=== PATIENT | female | born 1935 | race Caucasian/White ===

== ENCOUNTER 2018-07-22 19:40 | Emergency (ER) | payer OTHER ==
[~2018-07-22] VITALS: Ht 149.9 cm; Wt 63.5 kg
--- NOTE | ~2018-07-22 | EKG ---
[place] [address] [facility] [place] [address] ELECTROCARDIOGRAM REPORT Name: AMADA FRANCOISOLINDA Jacobo [facility]: [facility] [id number] Admission: 07/22/18 Attend Phys: Discharge: Date of : 37 Report #: [id number] THIS REPORT FOR: //name// [facility] ED Test Date: 2018-07-22 Test Time: 20:56:29 Pat Name: HAKEEM FRANCOIS Department: Room: Gender: F Range Aide: westleyjohana : 1935 Requested By: Celestine Hdz Order Number: [id number] MD: Santi Kendall Measurements Intervals [place] Rate: 67 P: 40 SC: 179 QRS: -6 QRSD: 94 T: 52 QT: 441 QTc: 466 Interpretive Statements Sinus rhythm Normal tracing Baseline wander in lead(s) V3 Compared to ECG 06/26/2015 11:28:28 No significant change was found Electronically Signed On 07-23-2018 8:54:10 NO EXPERIENCE by Santi Kendall [email or web address] <ELECTRONICALLY SIGNED> By: Santi Kendall MD, [facility] 07/23/18 0854 D: 11/2055 55 Santi Kendall MD, FACC /EPI
[~2018-07-22 19:40] MED LIST: ALBUTEROL2.5 MG/31 INH; ASPIR 8181 MG PO; AVAPRO300 MG PO; BENADRYL25 MG PO; BIOTIN PO; BIOTIN5 M1 PO; CEPACOL SORE T1 EAC7 PO; COREG3.125 MG PO; CRESTOR10 MG PO; CRESTOR20 MG PO; DONEPEZIL HCL 55 M1 PO; ENOXAPARIN30 MG/0.1 SUBQ; EVISTA PO; FISH OIL 1,001000 M2 PO; HARD NAILS2500 MCG; HUMALOG100 UNIT/1 SUBQ; HYDROCHLOROTHIA25 M2 PO; L-LYSINE500 M1 PO; LANTUS100 UNIT/M SUBQ; MAGNESIUM250 M1 PO; MEDROLDOSEPACK PO; MOM; MULTIVITAMINS1 EAC1 PO; MULTIVITAMINS1 EAC7 PO; PREVACID30 MG PO; PROAIR HFA8.5 GM INH; TESSALON PERLE100 MG PO; TRAMADOL 50 MG50 MG PO; TYLENOL325 MG PO; VENTOLIN HFA 1818 GM INH; VFEND 200 MG T200 M1 PO; VITAMIN D1000 UNI1; VITAMIN D1000 UNI1 PO; VITAMIN E400 UNI3; VITAMIN E400 UNIT PO; XANAX 0.25 MG0.25 MG PO; ZPAK PO
[2018-07-22 21:42] LABS: URINE BILIRUBIN NEGATIVE (Negative); URINE BLOOD TRACE (Negative); URINE CLARITY CLEAR; URINE COLOR YELLOW; URINE GLUCOSE-RANDOM* NEGATIVE (Negative); URINE KETONES NEGATIVE (Negative); URINE NITRITE-REFLEX NEGATIVE (Negative); URINE PROTEIN (DIPSTICK) NEGATIVE (Negative); URINE UROBILINOGEN 0.2 E.U./dl (0.2-1.0)
[2018-07-22 21:43] LABS: URINE LEUKOCYTES-REFLEX 2+ (Negative)
[2018-07-22 21:49] LABS: AMORPHOUS URATES Few /LPF (None Seen); BACTERIA-REFLEX 1-9 Few /HPF (None Seen); CASTS None Seen /LPF (None Seen); CRYSTALS None Seen /LPF (None Seen); SQUAMOUS 0-3 Few /LPF (0-3); URINE RBC 3-10 Few /HPF (0-2); URINE WBC-REFLEX 6-15 Few /HPF (0-5); WBC CLUMPS Rare (None Seen)
[2018-07-22 21:56] VITALS: BP 198/98
[2018-07-22 21:59] LABS: ABSOLUTE NEUTROPHILS 4.5 thou/uL (1.4-8.2); BASOPHILS 0.8 % (0.0-2.0); HEMATOCRIT 35.6 % (37.0-47.0); HEMOGLOBIN 12.2 gm/dL (12.0-15.0); LYMPHOCYTES 23.5 % (24.0-44.0); MCH 32.5 pg (26.0-34.0); MCHC 34.3 g/dL (28.0-37.0); MCV 94.8 fL (80.0-100.0); MONOCYTES 8.7 % (1.0-8.0); PLATELET COUNT 134 thou/uL (150-400); RBC 3.76 mil/uL (4.20-5.00); WBC 6.9 thou/uL (4.0-11.0)
[2018-07-22 22:07] LABS: ANION GAP 9 mmol/L (7-16); BUN 20 mg/dL (7-18); CALCIUM 10.1 mg/dL (8.5-10.1); CHLORIDE 103 mmol/L (98-107); CO2 26 mmol/L (21-32); CREATININE 1.5 mg/dL (0.6-1.0); GLUCOSE 170 mg/dL (74-106); POTASSIUM 4.6 mmol/L (3.5-5.1); SODIUM 138 mmol/L (136-145)
[2018-07-22 22:15] LABS: ALBUMIN 3.6 g/dL (3.4-5.0); MAGNESIUM 1.4 mg/dL (1.8-2.4); SGOT 39 U/L (15-37); SGPT 29 U/L (30-65); TOTAL BILIRUBIN 0.6 mg/dL (<0.1-1.0); TOTAL PROTEIN 8.4 g/dL (6.4-8.2); TROPONIN-I <0.06 ng/mL (<0.06)
[2018-07-22] MEDS ORDERED: KEFLEX500 M1 PO (22:19)
[2018-07-22] MEDS ORDERED: LISINOPRIL10 MG PO (22:19)
== END 2018-07-22 22:45 | disposition home or self-care (01) ==
LOC: ER 19:40
PROVIDERS: Emergency Medicine
DX: E11.649 Type 2 diabetes mellitus with hypoglycemia without coma (principal); Z79.4 Long term (current) use of insulin; R91.8 Other nonspecific abnormal finding of lung field; N39.0 Urinary tract infection, site not specified; I12.9 Hypertensive chronic kidney disease with stage 1 through stage 4 chronic kidney disease, or unspecified chronic kidney disease; E11.22 Type 2 diabetes mellitus with diabetic chronic kidney disease; N18.9 Chronic kidney disease, unspecified

== ENCOUNTER → 2019-04-08 | Outpatient (CLI) | payer OTHER ==
[~2019-04-08] MED LIST changes: +KEFLEX500 M1 PO; +LISINOPRIL10 MG PO
== END ==
LOC: MRI 04-01 15:39
DX: R90.82 White matter disease, unspecified (principal)

== ENCOUNTER → 2019-09-30 | Outpatient (CLI) | payer OTHER ==
[~2019-09-30] MED LIST changes: +CEFUROXIME250 MG PO; +LANTUS SUBQ
== END ==
LOC: SJCVC 10:33
DX: I25.10 Atherosclerotic heart disease of native coronary artery without angina pectoris (principal); E11.319 Type 2 diabetes mellitus with unspecified diabetic retinopathy without macular edema; E11.65 Type 2 diabetes mellitus with hyperglycemia; E78.00 Pure hypercholesterolemia, unspecified; F03.90 Unspecified dementia, unspecified severity, without behavioral disturbance, psychotic disturbance, mood disturbance, and anxiety; E11.22 Type 2 diabetes mellitus with diabetic chronic kidney disease; I12.9 Hypertensive chronic kidney disease with stage 1 through stage 4 chronic kidney disease, or unspecified chronic kidney disease; N18.9 Chronic kidney disease, unspecified; M81.0 Age-related osteoporosis without current pathological fracture; Z90.710 Acquired absence of both cervix and uterus; Z90.49 Acquired absence of other specified parts of digestive tract; Z90.12 Acquired absence of left breast and nipple; Z79.899 Other long term (current) drug therapy

== ENCOUNTER 2019-12-01 19:26 | Inpatient (IN) | payer OTHER ==
[~2019-12-01] VITALS: Ht 149.9 cm; Wt 58.5 kg
--- NOTE | ~2019-12-01 | EMS ---
[facility] [address] [place] [address] EMS Patient Care Report Name: HAKEEM FRANCOIS Room #: 437-P ADM IN M.R.#: [id number] Admission: 12/02/19 Attend Phys: Tesfaye Vazquez Discharge: Date of : 36 Report #: [id number] THIS REPORT FOR: //name// Report Transmitted: 12/03/2019 06:36 EMS Care Summary [place], [place]/[facility] Incident [id number] @ 12/01/2019 18:29 Incident Location [id number] [place] [address] [address] Patient HAKEEM FRANCOIS Female, 84 Years 1935 Patient Address [id number] [place] [address] [address] [place] [address] Patient History Diabetes, Patient Allergies No known allergies, Patient Medications Carvedilol, Lantus, Rosuvastatin, Levothyroxine, Humalog, None Reported, Hydrochlorothiazide (Hctz), Pantoprazole, Memantine, Irbesartan, Chief Complaint HYPERGLYCEMIA Disposition Transported No Lights/[place] Dispatch Reason Diabetic Problem Transported To [facility] Narrative PT STATES THAT PT HAS HAD A HIGH BLOOD SUGAR SINCE THIS MOURNING AND THAT SHE DOESN'T KNOW WHAT HER SUGAR READINGS WERE FOR THE WEEK BECAUSE SHE FORGETS TO [facility] [address] [place] [address] EMS Patient Care Report Name: HAKEEM FRANCOIS Room #: 437-P [facility] IN M.R.#: [id number] Admission: 12/02/19 Attend Phys: Tesfaye Vazquez Discharge: Date of : 36 Report #: [id number] WRITE THEM DOWN. PT STATES THAT PT HAS BEEN TO WEAK TO GET UP AND EAT. PT DENIES BEING ABLE TO TAKE HER INSULIN. PT HAS NO OTHER COMPLAINTS. PT WAS FOUND SITTING IN PT'S CHAIR IN PT'S HOME. PT SPOKE IN FULL AND COMPLETE SENTENCES. PT IS ABLE TO STAND AND PIVOT TO GET ONTO EMS COT WITH ASSISTANCE. PT FAMILY WAS WITH PT AND CONCERNED ABOUT PT. PT HAS NO OTHER OBVIOUS ABNORMALITIES. EMS USED A KN95 MASK ON PT CALL AND INSIDE PT'S HOME EMERGENCY SERVICES PROFESSIONAL WAS NOTIFIED BY EMT THAT THE MEDICS MASK HAD SPLIT DOWN THE FRONT. Initial Vitals @19:08P: 96,SpO2: 66, @19:13P: 91,CO: 2,SpO2: 95, @18:59P: 97,R: 18,BP: 152/80,Pain: 0/10,GCS: 15,Temp: 98.6F,Glucose: -2,CO: 0,SpO2: 96,Revised Trauma: 12, @19:09P: 95,R: 18,BP: 118/70,Pain: 0/10,GCS: 15,Glucose: -2,SpO2: 95,Revised Trauma: 12, Assessments @18:40MENTAL:Person Oriented,Time Oriented,Event Oriented,Place Oriented,SKIN:HEENT:Eyes: Left Pupil: 3-mm,Eyes: Right Pupil: 3-mm,Head/Face: No Abnormalities,Neck/Airway: No Abnormalities,LUNG SOUNDS:General: No Abnormalities,ABDOMEN:General: No Abnormalities,PELVIS//GI:EXTREMITIES:Capillary Refill: Right Upper: < 2 Sec,Left Arm: No Abnormalities,Right Arm: No Abnormalities,Left Leg: No Abnormalities,Right Leg: No Abnormalities,PULSE:Radial: 2+ Normal,NEURO:No Abnormalities, Impression Diabetic Hyperglycemia Procedures @19:1312-Lead ECGResponse: UnchangedSucceeded@19:10ALS AssessmentResponse: UnchangedSucceeded@19:123-Lead ECGResponse: UnchangedSucceeded Timeline 18:26,Call Received 18:26,Dispatch Notified 18:29,Dispatched 18:29,En Route 18:33,On Scene 18:34,At Patient 18:59,BP: 152/80 M,PULSE: 97,RR: 18 R,SPO2: 96 Ox,ETCO2: ,BG: -2,PAIN: 0,GCS: 15, 19:08,[place] [address] EMS Patient Care Report Name: HAKEEM FRANCOIS Odalis Room #: 437-P [facility] IN [facility].#: [id number] Admission: 12/02/19 Attend Phys: Tesfaye Vazquez Discharge: Date of : 36 Report #: [id number] 19:08,BP: / M,PULSE: 96,RR: R,SPO2: 66 Ox,ETCO2: ,BG: ,PAIN: ,GCS: , 19:09,BP: 118/70 M,PULSE: 95,RR: 18 R,SPO2: 95 Ox,ETCO2: ,BG: -2,PAIN: 0,GCS: 15, 19:10,ALS Assessment,Response: UnchangedSucceeded, 19:12,3-Lead ECG,Response: UnchangedSucceeded, 19:13,12-Lead ECG,Response: UnchangedSucceeded, 19:13,BP: / M,PULSE: 91,RR: R,SPO2: 95 Ox,ETCO2: ,BG: ,PAIN: ,GCS: , 19:21,At Destination 19:43,Call Closed Disclaimer v1.1 Copyright 2020 [employer] This EMS Care Summary contains data elements from the applicable legal record (which may be displayed differently). It is designed to provide pertinent information for the following purposes: continuity of care, clinical quality, and state data reporting. The complete legal record is available to ED staff and administrators of the receiving hospital in ES's Patient Tracker. All data is provided "as is."
[~2019-12-01 19:26] MED LIST changes: -CEFUROXIME250 MG PO; -LANTUS SUBQ
[2019-12-01 19:40] VITALS: BP 160/67
[2019-12-01 20:27] LABS: ABSOLUTE NEUTROPHILS 11.1 thou/uL (1.4-8.2); BASOPHILS 0.2 % (0.0-2.0); HEMATOCRIT 34.2 % (37.0-47.0); HEMOGLOBIN 11.5 gm/dL (12.0-15.0); LYMPHOCYTES 10.2 % (24.0-44.0); MCH 31.2 pg (26.0-34.0); MCHC 33.6 g/dL (28.0-37.0); MCV 92.9 fL (80.0-100.0); MONOCYTES 11.2 % (1.0-8.0); PLATELET COUNT 133 thou/uL (150-400); POLYS 78.4 % (36.0-66.0); RBC 3.68 mil/uL (4.20-5.00); RDW 13.6 % (10.5-14.5); URINE BILIRUBIN NEGATIVE (Negative); URINE BLOOD 1+ (Negative); URINE CLARITY CLEAR; URINE COLOR YELLOW; URINE GLUCOSE-RANDOM* 3+ (Negative); URINE KETONES NEGATIVE (Negative); URINE LEUKOCYTES-REFLEX NEGATIVE (Negative); URINE NITRITE-REFLEX NEGATIVE (Negative); URINE PROTEIN (DIPSTICK) TRACE (Negative); URINE SPECIFIC GRAVITY 1.015 (1.005-1.035); URINE UROBILINOGEN 0.2 E.U./dl (0.2-1.0); WBC 14.2 thou/uL (4.0-11.0)
[2019-12-01 20:31] LABS: BE(vivo) 0.1 mmol/L (-2 to +3); HCO3 23.9 mmol/L (22.0-26.0); PO2 VENOUS 47.7 mmHg (35.0-45.0)
[2019-12-01 20:35] LABS: CALCIUM 9.1 mg/dL (8.5-10.1); POTASSIUM 3.2 mmol/L (3.5-5.1); URINE WBC-REFLEX 6-15 Few /HPF (0-5)
[2019-12-01 20:36] LABS: CASTS None Seen /LPF (None Seen); CRYSTALS None Seen /LPF (None Seen); SQUAMOUS 0-3 Few /LPF (0-3); URINE RBC 0-2 Rare /HPF (0-2)
[2019-12-01 20:41] LABS: ALBUMIN 3.2 g/dL (3.4-5.0); TOTAL BILIRUBIN 1.6 mg/dL (<0.1-1.0); TOTAL PROTEIN 8.1 g/dL (6.4-8.2)
[2019-12-01 20:42] LABS: MAGNESIUM 0.8 mg/dL (1.8-2.4)
[2019-12-02] VITALS (8 sets, daily range): BP systolic 119–135; BP diastolic 49–67
--- NOTE | 2019-12-02 04:17 | NUR ---
ADMIT FROM ED. PT LIVES IN [place], [facility]. 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 PT STATED HER DAUGHTER AND SON THOUGHT SHE SHOULD GO TO THE HOSPITAL. EMS REPORTED HIGH FSBS. IN ED FSBS 460. UA OBTAINED, LABS NOT WITHIN NORMAL RANGE. PT REPORTED R KNEE PAIN FOR THE LAST TWO DAYS. LUNGS DIMINISHED. IV INTACT ANTIBIOTICS RUNNING. FEMALE EXT CATHETER IN PLACE. SCDS ON, PT REQESTED RLE SCD BE REMOVED. BED ALARM ON.
[2019-12-02 05:07] LABS: GLYCOHEMOGLOBIN (HGB A1C) 7.7 % (4.8-5.6)
--- NOTE | 2019-12-02 06:32 | NUR ---
LAB ATTEMPTED X 2, NOT SUCCESSFUL WILL HAVE NEXT MANNEQUIN MOLDER ATTEMPT.
[2019-12-02 09:31] LABS: CALCIUM 7.9 mg/dL (8.5-10.1); CREATININE 1.4 mg/dL (0.6-1.0); MAGNESIUM 1.7 mg/dL (1.8-2.4); POTASSIUM 3.3 mmol/L (3.5-5.1)
--- NOTE | 2019-12-02 13:03 | NUR ---
Received awake on bed. Due medications given as prescribed, able to swallow meds w/o difficulty. On room air. Maintained on isolation, special precautions observed. Vital signs stable. On heart monitoring- strips obtained and attached to chart, no complaints of chest pain, crushing sensation or heaviness noted. On carb controlled diet served on special precautions tray, with good appetite; no nausea, no vomiting or abdominal pain noted. Complained of pain on R knee- no PRN meds ordered, Dr Vazquez informed; medication given as precribed. A+Ox4. On blood sugar monitoring ACHS, taken and recorded, with sliding scale insulin given as prescribed. CBG of 447 pre-lunch, Dr Moore in pt's room and informed re: blood sugar- insulin ordered and given as prescribed. Falls bundle in place. With female external emerson in place- output measured and recorded accordingly; checked frequently and changed as needed. With SL at R hand. With NS at 125cc/hr, infusing well at R AC, one time dose only, shifted to SL upon completion. PO correction of K(3.3, 47) and Mg(1.7, 4/7) done and repeat labs ordered and to be taken at 4/7, 4pm. SCDs in place. To continue monitoring patient.
--- NOTE | 2019-12-02 14:54 | HC ---
[facility] [place] [address] [place] [address] CONSULTATION Name: HAKEEM FRANCOIS Odalis Room #: 353-P [facility] IN ..#: [id number] Admission: 12/02/19 Attend Phys: Tesfaye Vazquez Discharge: Date of : 36 Report #: [id number] THIS REPORT FOR: cc: Georgia Benson MD,Hayley Bojorquez MD, MD ~ CC: Tesfaye Benson DATE OF SERVICE: 12/02/2019 ENDOCRINE CONSULTATION NOTE CONSULTING PHYSICIAN: Dr. Larson. REASON FOR CONSULTATION: Uncontrolled type 2 diabetes mellitus. HISTORY OF PRESENT ILLNESS: This is an 84-year-old female patient whose medical background is significant for multiple medical issues including type 2 diabetes mellitus, hypertension, GERD, history of TIA, anemia, as well as breast cancer and throat cancer. The patient presented to the ER yesterday with complaints of hyperglycemia, generalized fatigue and weakness, body aches, right knee pain and inability to ambulate. She was admitted for further care and monitoring. When questioned about her type 2 diabetes mellitus, she noted that she has had it for several years and that she is maintained on a combination of Lantus insulin 35 units q.p.m. in addition to Humalog insulin that she adjusts according to a scale, but average is at about 8-12 units per meal 3 times a day. She notes that her blood glucose values have fluctuated somewhat lately and tended to be on the higher side, but with most being around 200 mg/dL and rarely above 300 mg/dL. She does not have frequent issues with hypoglycemia. The patient is not aware of difficulties pertaining to diabetic retinopathy, nephropathy or neuropathy. Also, the patient has hyperlipidemia and is maintained on rosuvastatin 20 mg daily. The patient is also known to have hypertension and is maintained on irbesartan 300 mg daily as well as carvedilol 3.125 mg p.o. b.i.d. REVIEW OF SYSTEMS: CONSTITUTIONAL: Fatigue, tiredness, weakness, but not fever or chills. PULMONARY: Shortness of breath, dyspnea on exertion, intermittent cough, but no hemoptysis. CARDIAC: Negative for chest pain, palpitations, syncope or presyncope. Noted for dyspnea on exertion. NEUROLOGY: Intermittent lightheadedness and dizziness, but not seizure activity or severe frequent headaches. No loss of consciousness. GASTROINTESTINAL: Negative for abdominal pain, nausea, vomiting or changes in [address] [address] CONSULTATION Name: HAKEEM FRANCOIS Odalis Room #: 353-P [facility] IN ..#: [id number] Admission: 12/02/19 Attend Phys: Tesfaye Vazquez Discharge: Date of : 36 Report #: [id number] bowel movement or frequency. DERMATOLOGY: Negative for skin rash or ulcerations. MUSCULOSKELETAL: Right knee pain and limited ambulation. PSYCHIATRIC: Negative for delusions, hallucinations. Otherwise, review of systems noncontributory other than those mentioned in HPI. PAST MEDICAL HISTORY: 1. Type 2 diabetes mellitus. 2. Hypertension. 3. Hyperlipidemia. 4. Osteoarthritis. 5. GERD. 6. Osteoporosis. 7. History of TIA. 8. Anemia. 9. History of breast cancer. 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 PAST SURGICAL HISTORY: Left mastectomy, hysterectomy and cholecystectomy. OUTPATIENT MEDICATIONS: Include lisinopril 10 mg daily, Prevacid 30 mg daily, donepezil 5 mg daily, aspirin 81 mg daily, Lantus 35 units q.p.m., Evista 60 mg daily, hydrochlorothiazide 12.5 mg daily, irbesartan 300 mg daily, carvedilol 3.125 mg p.o. b.i.d., Humalog insulin 8-12 units t.i.d. Crestor 20 mg at bedtime, multivitamin daily. REPORTED ALLERGIES: ACETAMINOPHEN, CIPROFLOXACIN, ____, SULFA, FENTANYL. FAMILY HISTORY: Noncontributory. SOCIAL HISTORY: The patient lives by herself. Denies use of alcohol, tobacco or illicit drugs. PHYSICAL EXAMINATION: GENERAL: Pleasant female patient who is not in apparent distress. VITAL SIGNS: Blood pressure is 133/55 mmHg, heart rate is 78 beats per minute, respirations 16 per minute, temperature 36.2 degrees. CONSTITUTIONAL: The patient is sitting upright in bed, appears relatively comfortable, not in apparent distress. HEENT: Anicteric sclerae. Intact extraocular motions. NECK: Supple, without JVD. No appreciable thyromegaly. CHEST: Noted for moderate air entry bilaterally with scattered rales. No wheezes. HEART: Regular rate and rhythm without murmurs or gallops. ABDOMEN: Soft, lax. No guarding. Active bowel sounds. EXTREMITIES: Lower extremity exam is noted for trace ankle edema bilaterally. [facility] [address] [place] [address] CONSULTATION Name: HAKEEM FRANCOIS Room #: 353-P ADM IN M.R.#: [id number] Admission: 12/02/19 Attend Phys: Tesfaye Vazquez Discharge: Date of : 36 Report #: [id number] No skin breaks or ulcerations. Pedal pulses are appreciated. NEUROLOGIC: Awake, alert and oriented to time, place and person. The patient had difficulties performing some thoughts and answers, however, she is not aphasic. Otherwise, exam is largely nonfocal. PSYCHIATRIC: Pleasant, interactive. Normal mood and affect. LABORATORY DATA: Blood glucose on arrival was 323, this morning it was 447 mg/dL. Otherwise, sodium 131, potassium 3.3, chloride 97, CO2 of 21, anion gap 13, BUN 27, creatinine 1.4. AST 16, amylase 50, lipase 284, calcium 7.9, phosphorus 2.0, magnesium 1.7, ALT 20, total protein 8.1, albumin 3.2. EGFR 36. COVID-19 screening is pending. INR 1.1. White blood count 14.2, hemoglobin 11.5, hematocrit 34.2, platelets 133. Hemoglobin A1c is 7.7%. ASSESSMENT AND PLAN: 1. Type 2 diabetes mellitus. As noted above, the patient has been maintained on a basal bolus insulin regimen. Her overall level of glycemic control is not ideal, but it was not far from goal with hemoglobin A1c of 7.7%. I will place the patient on a combination of Lantus insulin 30 units daily in addition to Humalog insulin 10 units t.i.d. a.c., as well as maintain Humalog supplemental scale coverage with moderate intensity with blood glucose monitoring a.c. and at bedtime. Further insulin regimen adjustments will be made according to the patient's needs. 2. Hypertension. The patient's level of blood pressure control is adequate. She is to continue with the same. 3. Hyperlipidemia. The patient is maintained on rosuvastatin with adequate control as per her report and good tolerability. She is to maintain the same. 4. Hypocalcemia. The patient is notably hypocalcemic, but is not symptomatic for this issue. I will verify this further with vitamin D and ionized calcium levels. I have reviewed the patient's clinical care notes, laboratory studies, radiology studies and other pertinent clinical information for over 35 minutes. I certainly appreciate this consultation by Dr. Larson. <ELECTRONICALLY SIGNED> By: Hayley Maradiaga MD 12/02/19 1454 1134 1200 Hayley Maradiaga MD /nt
--- NOTE | 2019-12-02 15:28 | NUR ---
INITIAL ASSESSMENT: Received consult. MARCIANO reviewed chart and spoke with nursing and attending physician. Pt was admitted from home due to hyperglycemia/pneumonia. Pt with hx of DM type 2, breast cancer, tracheal cancer. Pt is currently in Enhanced Isolation to r/o COVID-19. Pt had xray of her right knee earlier today. MARCIANO spoke with pt via phone. Introduced role of SW. Pt is alert/orientated. Pt states that she lives at home alone in an apt in a [facility] [address] complex ([facility]). Prior to admission, pt was independent with ADLs. Pt has elevator access. No stairs to navigate. No use of DME. No hx of HH services. Pt has been to [facility] in the past. Pt's PCP is Dr. Georgia Benson. MARCIANO spoke with pt's dtr, Liana, via phone to provide update. Pt's dtr lives in [place], [place] and her soon is in [place]. Both are supportive and involved in pt's care. Confirms plan is for pt to return to her apt when medically stable. Therapy evals to be ordered when COVID-19 results are available. MARCIANO is following to assist as needed with discharge plannign.
[2019-12-02 16:06] LABS: MAGNESIUM 1.6 mg/dL (1.8-2.4); POTASSIUM 3.7 mmol/L (3.5-5.1)
--- NOTE | 2019-12-02 19:17 | NUR ---
ASSUMED CARE OF PT AFTER REPORT FROM DAWN DOSHI, PT RESTING IN BED WITH NO APPARENT S/S OF DISTRESS NO COMPLAINTS OR QUESTIONS AT THIS TIME.
[2019-12-03 04:27] VITALS: BP 127/55
[2019-12-03 05:08] LABS: 25-HYDROXY TOTAL 36.3 ng/mL (30.0-100.0); CALCIUM IONIZED* 4.6 mg/dL (4.5-5.6)
[2019-12-03 06:04] LABS: HEMATOCRIT 29.1 % (37.0-47.0); HEMOGLOBIN 10.1 gm/dL (12.0-15.0); MCH 32.2 pg (26.0-34.0); MCHC 34.6 g/dL (28.0-37.0); MCV 93.2 fL (80.0-100.0); RBC 3.12 mil/uL (4.20-5.00); RDW 13.4 % (10.5-14.5); WBC 9.1 thou/uL (4.0-11.0)
[2019-12-03 06:28] LABS: CALCIUM 7.9 mg/dL (8.5-10.1); CREATININE 1.3 mg/dL (0.6-1.0); MAGNESIUM 1.5 mg/dL (1.8-2.4); POTASSIUM 3.6 mmol/L (3.5-5.1)
[2019-12-03 07:50] VITALS: BP 150/52
--- NOTE | 2019-12-03 14:27 | NUR ---
ORTHO CONSULTED THIS DAY THEY ARE PLANNING TO DO INJECTION IN PT'S KNEE. CM SPOKE WITH PT ABOUT PT AND OT SEEING HER AND POSSIBLE BEING ASSESSED FOR 5N. CM TO FOLLOW INDICATED WITH DC PLANNING NEEDS.
[2019-12-03 16:52] LABS: SOURCE SYNOVIAL; TOTAL VOLUME 25 mL
[2019-12-03 16:53] LABS: BF CRYSTALS No Crystals seen; CLARITY CLOUDY; COLOR YELLOW
[2019-12-03 17:16] VITALS: BP 138/60
[2019-12-03 18:23] LABS: BF NUCLEATED CELLS 24762; BF RBC 8352
[2019-12-03 18:26] LABS: BF MACROPHAGE 2; BF NEUTROPHILS 93
--- NOTE | 2019-12-03 20:11 | NUR ---
PATIENT CARE ASSUMED AT 0700. A&Ox4. PT UP IN THE RECLINER ALL DAY. L. SIDE FORBIDDEN. ACHS ON A MEDIUM SLIDDING SCALE WITH COVERAGE NEEDED. EXTERNAL MONAE IN PLACE. SCD'S IN PLACE. PT IS ON ELECTROLYTE PROTOCOL. PT NEEDED MAGNESIUM DUE TO HER RATE BEING 1.3 NEEDS TO BE REDRAWN AT 2114. POTASSIUM WAS LOW IN THE AM AND RECEIVED A ONE TIME DOSE AND WAS STABALIZED AT REDRAW. PT HAD FLUIDS DRAWN FROM HER R. KNEE BY DR. FRIEND THIS AM AND IS FEELING BETTER WITH NO PAIN MEDICATION NEEDED. FALL PROTOCOL IN PLACE. CALL LIGHT IN REACH. IV PATENT WITH NO REDNESS OR EDEMA. SALINE LOCKED.
[2019-12-03 21:31] VITALS: BP 134/64
--- NOTE | 2019-12-04 05:19 | NUR ---
RECIEVED CARE OF THIS PATIENT AT 1900. PATIENT ALERT AND ORIENTED X4 BUT IS FORGETFUL AND CONFUSED AT TIMES. UP TO BATHROOM WITH ASSIST. IV REPLACED AND PUT IN R WRIST BY THE THUMB. TOLERATED WELL. ACCUCHECK WAS 256, RECIEVED 12 UNITS LISPRO INSULIN. CAN BE IMPULSIVE. REFUSED SCD'S. DENIES PAIN. SLEPT MOST OF THE NIGHT.
[2019-12-04 07:20] VITALS: BP 136/65
[2019-12-04] MEDS ORDERED: LANTUS SUBQ (09:38)
[2019-12-04] MEDS ORDERED: TRAMADOL 50 MG50 MG PO (09:38)
[2019-12-04] MEDS ORDERED: HUMALOG100 UNIT/1 SUBQ (09:39)
[2019-12-04] MEDS ORDERED: CEFUROXIME250 MG PO (09:43)
--- NOTE | 2019-12-04 11:27 | HC ---
[facility] [place] [address] [place] [address] CONSULTATION Name: HAKEEM FRANCOIS Room #: 437-P [facility] IN .R.#: [id number] Admission: 12/02/19 Attend Phys: Tesfaye Vazquez Discharge: Date of : 36 Report #: [id number] THIS REPORT FOR: cc: Georgia Benson MD,Georgia Melendrez,Hansel Zamora MD ~ CC: Tesfaye Benson DATE OF SERVICE: 12/03/2019 CHIEF COMPLAINT: Right knee pain. HISTORY OF PRESENT ILLNESS: This frail, elderly 84-year-old female presents with hypoglycemia and possible sepsis with generalized fatigue and malaise. She also was noted to have some right knee discomfort where there appears to be a mild knee effusion. At the time of my evaluation, she is alert and oriented and sitting up, eating her lunch and states she feels well. She notes her right knee symptoms are uncomfortable and present difficulties with ambulation, although she notes she is now able to ambulate with a walker. She denies any other joint symptoms and denies significant previous joint irritability. OBJECTIVE: MUSCULOSKELETAL: On exam, the right knee is moderately puffy consistent with a knee effusion. There is no significant redness or warmth, but the knee has uncomfortable range of motion. Findings would be consistent with either a degenerative knee with reactive synovitis, but it is certainly difficult to rule out infection or gout as another possibility. I see no other joints, which seemed to be annoyed or inflamed. X-rays of the right knee reveal no fractures. There is evidence of a moderate knee effusion and some generalized degenerative arthritis. No other significant abnormalities are noted. IMPRESSION AND PLAN: I suspect this is a moderately arthritic knee with an acute reactive synovitis. Nevertheless, I think joint aspiration for culture and crystals along with injection with Depo-Medrol would be appropriate at this point. I can proceed with that whenever the materials are available. I would not suggest any other interventive treatment for the knee at this point. We will follow along pending her progress. <ELECTRONICALLY SIGNED> By: Hansel Melendrez MD 12/04/19 1127 1243 1258 Hansel Melendrez MD /nt
[2019-12-04 12:37] VITALS: BP 136/65
--- NOTE | 2019-12-04 12:39 | NUR ---
FAXED REFERRAL TO [facility] HH SPOKE WITH LILIBETH IN INTAKE SHE RECEIVED REFERRAL AND WILL BE ABLE TO ACCEPT.
[2019-12-04 13:29] VITALS: BP 136/65
--- NOTE | 2019-12-04 13:31 | NUR ---
CARE TEAM INDICATED THAT IS TOO HIGH LEVEL FOR 5N ACUTE INPATIENT REHAB AND THAT PT IS MEDICALLY STABLE AND SAFE TO RETURN HOME UPON DISCHARGE. CM SPOKE WITH PT AND SHE IS AGREEABLE. REFERRAL SENT TO [facility]. THEY CAN ACCEPT PT UPON DC. CM ORDERED FWW FOR HOME USE THROUGH [facility]. THEY ARE TO DELIVER FWW TO PT FOR HER TO TAKE HOME WITH HER. NO OTHER CM INTERVENTION INDICATED. CASE CLOSED.
--- NOTE | 2019-12-04 13:48 | NUR ---
FAXED REFERRAL TO [facility] HH SPOKE WITH LILIBETH IN INTAKE SHE RECEIVED REFERRAL AND CAN ACCEPT. FAXED DC ORDERS/SUMMARY RECEIVED CONFIRMATION ADN THEY WILL NOTIFY PT TIME OF VISITS.
--- NOTE | 2019-12-04 14:44 | NUR ---
PT A&OX4, VSS, DENIES PAIN. CHANGES TO INSULIN LISPO MADE. PATIENT DISCHARGING HOME WITH HOME HEALTH. PATIENT HAS NEW WALKER SHE WILL GO HOME WITH. IV REMOVED, ALL BELONGINGS WITH PATIENT. NO SIGNS OF DISTRESS. WILL CONTINUE TO MONITOR.
--- NOTE | 2019-12-05 12:24 | EKG ---
[facility] [place] [address] [place] [address] ELECTROCARDIOGRAM REPORT Name: PRISCILAHAKEEM Jacobo Room #: 437-P [facility] IN M.R.#: [id number] Admission: 12/02/19 Attend Phys: Tesfaye Vazquez Discharge: 12/04/19 Date of : 36 Report #: [id number] THIS REPORT FOR: cc: Georgia Benson MD, Melanie MD Lundgren,Santi Mcfarland MD [facility] ~ THIS REPORT FOR: //name// [facility] ED Test Date: 2019-12-01 Test Time: 20:03:09 Pat Name: HAKEEM FRANCOIS Department: Room: [facility] Gender: F Information Officer: AMELIE : 1935 Requested By: Tami Meeks Order Number: [id number] MD: Santi Kendall Measurements Intervals [place] Rate: 90 P: 13 PA: 165 QRS: -12 QRSD: 85 T: QT: 383 QTc: 469 Interpretive Statements Sinus rhythm Nonspecific ST segment abnormality Compared to ECG 07/22/2018 20:56:[address] segment abnormality is now present Electronically Signed On 12-02-2019 7:56:42 CDT by Santi Kendall [email or web address] <ELECTRONICALLY SIGNED> By: Santi Kendall MD, [facility] 12/02/19 0756 02 02 Santi Kendall MD, [facility] /EPI
== END 2019-12-04 16:57 | disposition home health service (06) | DRG 871 ==
LOC: ER 19:26 → 3W 12-02 00:34 → EROBS 12-02 00:34 → 3W 12-02 02:46 → 4S 12-02 20:49 → ENTRNSPT 12-04 15:51 → 4S 12-04 16:57
PROVIDERS: Emergency Medicine Emergency Medical Services; Internal Medicine; Nurse Practitioner Family; Orthopaedic Surgery; ADMIT Hospitalist; ATTEND Hospitalist
DX: A41.9 Sepsis, unspecified organism (principal); R65.21 Severe sepsis with septic shock; N17.0 Acute kidney failure with tubular necrosis; N39.0 Urinary tract infection, site not specified; E87.1 Hypo-osmolality and hyponatremia; E11.65 Type 2 diabetes mellitus with hyperglycemia; I10 Essential (primary) hypertension; M81.0 Age-related osteoporosis without current pathological fracture; M19.90 Unspecified osteoarthritis, unspecified site; G89.29 Other chronic pain; M25.519 Pain in unspecified shoulder; E83.51 Hypocalcemia; M17.11 Unilateral primary osteoarthritis, right knee; Z60.2 Problems related to living alone; K59.00 Constipation, unspecified; Z20.828 Contact with and (suspected) exposure to other viral communicable diseases; Z90.12 Acquired absence of left breast and nipple; Z85.12 Personal history of malignant neoplasm of trachea; Z92.21 Personal history of antineoplastic chemotherapy; Z92.3 Personal history of irradiation; Z86.73 Personal history of transient ischemic attack (TIA), and cerebral infarction without residual deficits; Z88.6 Allergy status to analgesic agent; Z88.1 Allergy status to other antibiotic agents; Z88.2 Allergy status to sulfonamides; Z88.8 Allergy status to other drugs, medicaments and biological substances; Z80.3 Family history of malignant neoplasm of breast; Z83.3 Family history of diabetes mellitus; Z79.82 Long term (current) use of aspirin; Z79.899 Other long term (current) drug therapy
CPT/HCPCS: 10195

== ENCOUNTER → 2020-03-30 | Outpatient (CLI) | payer OTHER ==
[~2020-03-30] MED LIST changes: +CEFUROXIME250 MG PO; +LANTUS SUBQ
== END ==
LOC: SJCVC 10:24
PROVIDERS: ATTEND Internal Medicine
DX: I25.10 Atherosclerotic heart disease of native coronary artery without angina pectoris (principal); I10 Essential (primary) hypertension; E78.5 Hyperlipidemia, unspecified; E11.9 Type 2 diabetes mellitus without complications; K21.9 Gastro-esophageal reflux disease without esophagitis; Z79.899 Other long term (current) drug therapy

== ENCOUNTER 2020-05-19 14:25 | Inpatient (IN) | payer OTHER ==
[~2020-05-19] VITALS: Ht 162.6 cm; Wt 68.0 kg
[2020-05-19 14:30] VITALS: BP 182/88
[2020-05-19 15:00] LABS: URINE BILIRUBIN NEGATIVE (Negative); URINE BLOOD TRACE (Negative); URINE CLARITY CLEAR; URINE COLOR YELLOW; URINE GLUCOSE-RANDOM* NEGATIVE (Negative); URINE KETONES NEGATIVE (Negative); URINE LEUKOCYTES-REFLEX NEGATIVE (Negative); URINE NITRITE-REFLEX NEGATIVE (Negative); URINE PROTEIN (DIPSTICK) 1+ (Negative); URINE SPECIFIC GRAVITY >= 1.030 (1.005-1.035); URINE UROBILINOGEN 0.2 E.U./dl (0.2-1.0)
--- NOTE | 2020-05-19 15:10 | NUR ---
IV team called by clerk Delicia at this time
[2020-05-19 15:11] LABS: CASTS None Seen /LPF (None Seen); CRYSTALS None Seen /LPF (None Seen); SQUAMOUS 4-10 Moderate /LPF (0-3); URINE RBC 0-2 Rare /HPF (0-2); URINE WBC-REFLEX 0-5 Rare /HPF (0-5)
--- NOTE | 2020-05-19 15:30 | NUR ---
Attempted to call facility with no answer. Will try to call back again
[2020-05-19] MEDS ORDERED: NOVOLOG FL100 UNIT/M SUBQ ×2 (15:48→17:33)
[2020-05-19] MEDS ORDERED: MEMANTINE HCL10 MG PO (15:48)
[2020-05-19] MEDS ORDERED: CARVEDILOL6.25 M1 PO (15:48)
[2020-05-19] MEDS ORDERED: LEVOTHYROXINE25 MCG PO (15:48)
[2020-05-19] MEDS ORDERED: ROSUVASTATIN CA40 MG PO (15:50)
[2020-05-19] MEDS ORDERED: PROTONIX40 M2 PO (15:50)
[2020-05-19] MEDS ORDERED: LANTUS SOL100 UNIT/1 SUBQ (15:51)
[2020-05-19 16:40] LABS: ANION GAP 17 mmol/L (7-16); BUN 41 mg/dL (7-18); CALCIUM 9.8 mg/dL (8.5-10.1); CHLORIDE 104 mmol/L (98-107); CO2 22 mmol/L (21-32); CREATININE 1.6 mg/dL (0.6-1.0); GLUCOSE 259 mg/dL (74-106); POTASSIUM 4.5 mmol/L (3.5-5.1); SODIUM 143 mmol/L (136-145)
[2020-05-19 17:00] LABS: TROPONIN-I <0.06 ng/mL (<0.06)
[2020-05-19 17:27] LABS: HEMATOCRIT 39.1 % (37.0-47.0); MCH 30.1 pg (26.0-34.0); MCHC 33.2 g/dL (28.0-37.0); MCV 90.8 fL (80.0-100.0); RBC 4.31 mil/uL (4.20-5.00); RDW 15.4 % (10.5-14.5); WBC 13.5 thou/uL (4.0-11.0)
[2020-05-19 17:43] LABS: APTT 29.6 Seconds (24.5-32.8); INR 1.2; PROTIME 12.3 Seconds (9.3-11.4)
[2020-05-19 19:47] VITALS: BP 176/80
[2020-05-19 20:05] VITALS: BP 169/97
[2020-05-19] MEDS ORDERED: ASA81BEC PO (20:05)
[2020-05-19 21:00] VITALS: BP 176/80
[2020-05-19 21:07] LABS: CHOLESTEROL 126 mg/dL (<200); HDL CHOLESTEROL 55 mg/dL (>40); LDL CHOLESTEROL 46 mg/dL (<100); TC:HDL 2.3 Ratio (Not establshd); TRIGLYCERIDE 125 mg/dL (<150); VLDL 25 mg/dL (<40)
[2020-05-19 21:22] LABS: SERUM ASSESSMENT Clear
--- NOTE | 2020-05-20 02:53 | NUR ---
PT WAS ADMITTED TO THE UNIT FROM THE ER IN A STABLE CONDITION.PT IS ALERT, CONFUSED AMD FORGETFUL.ADMISSION HX,ASSESMENT AND EDUCATION COMPLETED.IVF INFUSING ORDERED.PT ABLE TO MAKE HER NEEDS KNOWN.PT EDUCATED TO USE THE CALL LIGHT FOR ASSISTANCE.CALL LIGHT WITHIN REACH.FALL PRECAUTIONS IN PLACE.
[2020-05-20 02:55] LABS: HEMATOCRIT 34.4 % (37.0-47.0); HEMOGLOBIN 11.4 gm/dL (12.0-15.0); MCH 30.2 pg (26.0-34.0); MCHC 33.1 g/dL (28.0-37.0); MCV 91.2 fL (80.0-100.0); RBC 3.77 mil/uL (4.20-5.00); RDW 15.2 % (10.5-14.5); WBC 10.6 thou/uL (4.0-11.0)
[2020-05-20 03:44] LABS: CALCIUM 8.4 mg/dL (8.5-10.1); CREATININE 1.4 mg/dL (0.6-1.0); POTASSIUM 3.6 mmol/L (3.5-5.1)
[2020-05-20 04:07] VITALS: BP 166/79
--- NOTE | 2020-05-20 07:08 | EKG ---
[facility] [place] [address] [place] [address] ELECTROCARDIOGRAM REPORT Name: PRISCILAHAKEEM Jacobo Room #: 435-P ADM IN M.R.#: [id number] Admission: 05/19/20 Attend Phys: Jackson Jimenez MD Discharge: Date of : 36 Report #: [id number] THIS REPORT FOR: cc: Georgia Benson MD, Melanie MD Santiago,Oliver [facility] ~ THIS REPORT FOR: //name// [facility] ED Test Date: 2020-05-19 Test Time: 14:35:39 Pat Name: HAKEEM FRANCOIS Department: Room: [facility] Gender: F Draw Fire Operator: marco : 1935 Requested By: Leroy Rich Order Number: [id number] MD: Oliver Reilly Measurements Intervals [place] Rate: 98 P: [place]: QRS: 9 QRSD: 88 T: -81 QT: 421 QTc: 538 Interpretive Statements NSR Left ventricular hypertrophy Borderline T abnormalities, inferior leads Prolonged QT interval Compared to ECG 12/01/2019 20:03:09 T-wave abnormality now present Prolonged QT interval now present ST (T wave) deviation no longer present Electronically Signed On 05-20-2020 7:08:19 CDT by Oliver Reilly [email or web address] <ELECTRONICALLY SIGNED> By: Oliver Reilly MD, FACC 05/20/20 0708 1435 1435 Oliver Reilly MD, FAC /EPI
[2020-05-20 08:06] VITALS: BP 174/53
--- NOTE | 2020-05-20 09:11 | NUR ---
ASSESSMENT: CM REVIEWED CHART. CM ALSO SPOKE WITH PTS DAUGHTER CHEMO WHO PROVIDED INFORMATION. PT WAS ADMITTED FOR RHABDOMYOLYSIS S/P FALL. PT LIVES IN [place]DEP[place] [facility]. PT HAS A WALKER AT HOME FOR AMBULATION BUT DAUGHTER REPORTS SHE DOES NOT ALWAYS USE IT. PT HAS HAD HH IN THE PAST BUT UNSURE WHAT AGENCY. DAUGHTER REPORTS THAT PT IS NORMALLY PRETTY INDEPENDENT AND IS INDEPENDENT WITH ADLS. PT/OT WILL SEE PATIENT AND CM WILL CONTINUE TO FOLLOW TO ASSIST NEEDED.
--- NOTE | 2020-05-20 11:41 | NUR ---
PT ALERT XS 3. UP IN BEDSIDE CHAIT. PT HAS PT AND OT ORDERS SHE HAD PT THIS AM. TAKES MEDS PO. MONITORING LACTIC ACID. PT FEEDS SELF WITH SET-UP. IV FLUIDS INFUSING. NO PAIN OR RESP DISTRESS. BLOOD SUGARS MONITORED AND S/S INSULIN GIVEN.
[2020-05-20 16:39] VITALS: BP 177/58
--- NOTE | 2020-05-21 02:56 | NUR ---
ASSUMED PT CARE AT AROUND 1915 HRS. PT VERY RESTLESS. FREQUENTLY NEEDING TO USE THE BATHROOM.CONFUSED AND FORGETFUL. DENIES PAIN. PT GIVEN HS MEDS, NOTED TO SWALLOW WITHOUT ANY DIFFICULTIES.PT CONTINUED TO BE RESTLESS AND IMPULSIVE. ONE TIME ORDER OF IV HALDOL GIVEN, PATIENT ABLE TO CALM DOWN AND SLEEP. FALL PREC IN PLACE.
[2020-05-21 08:00] VITALS: BP 95/66
--- NOTE | 2020-05-21 09:39 | NUR ---
PATIENT ALERT XS 3-4 ASSISTED SBA TO BEDSIDE COMMODE. PT CONT OF B&B. PT IN BEDSIDE CHAIR APPETITE GOOD FEEDS SELF WITH SET UP. PT TOOK AM MEDS AND BLOOD SUGAR CHECKED AND INSULIN ORDERED. THERAPY WORKING WITH PATIENT. PT PLEASANT AND COOPERATIVE WITH CARE
--- NOTE | 2020-05-21 13:32 | NUR ---
PT AND OT WORKED WITH PT PT THIS AM AND 5[facility] ASSESSED AND INDICATED THAT PT ISN'T APPROPRIATE FOR ADMISSION TO 5N. THEY ARE RECOMMENDING SKILLED POST ACUTE CARE STAY. CM CALLED AND SPOKE WITH PT'S DTR. SHE INDICATED THAT PT HAD BEEN MANAGING OWN MEDS AND INSULIN UNSUCCESSFULLY AT HER [facility] DESPITE THEIR AFFORTS TO ASSIST WITH WEEKLY AM/AP PILL KEEPERS AND CHARTS. DTR ALSO INDICATED THAT THEY ARE IN THE PROCESS OF TRYING TO GET PT INTO AN AL LEVEL OF CARE. DTR ASKED THAT REFERRAL BE SENT TO [facility] PT HAD BEEN THERE IN THE PAST AND THEY ARE IN [place] WITH HER INSRUANCE. REFERRAL TO BE SENT. AWAITING DETERMINATION IF [facility] CAN ACCEPT AND WILL THEN NEED AUTH. CM TO FOLLOW INDICATED WITH DC PLANNING.
--- NOTE | 2020-05-21 15:42 | NUR ---
[facility]ED [facility] TO [facility] RECEIVED CONFIRMATION AND LEFT MSG WITH GALE IN ADM IF SHE CAN ACCEPT TO SUBMIT FOR AUTH.
--- NOTE | 2020-05-21 16:15 | NUR ---
CONSULT RECEIVED FOR [facility] ACUTE REHAB. Pt DOES NOT MEET CRITERIA FOR ACUTE REHAB. RECOMMEND SNF WITH TRANSITION TO [facility] OR ADDITIONAL SERVICES IF RETURN TO [facility] SETTING. THANK YOU FOR THIS REFERRAL.
[2020-05-21 19:40] VITALS: BP 171/58
--- NOTE | 2020-05-22 03:42 | NUR ---
PT INCREASINGLY CONFUSED AND RESTLESS TOWARDS BEDTIME. SHE ALSO HAS URINARY FREQUENCY. PATIENT VOIDING PER THE BATHROOM. PT CONFUSED ABOUT WHERE SHE IS AND LOOKING FOR HER KIDS. FREQUENTLY RE-ORIENTED BUT SHE FORGETS. ONE TIME DOSE OF HALDOL GIVEN AND IT WAS NOT UNTIL ABOUT MIDNOC THAT PT FINALLY SETTLED DOWN AND WENT TO SLEEP.
[2020-05-22 07:15] VITALS: BP 187/87
--- NOTE | 2020-05-22 13:46 | NUR ---
PT IS IMPULSIVE AND FORGETFUL AT TIMES AND HAS TO BE REMINDED. BLOOD SUGARS ARE MONITORED CLOSELY. PT IS ON A CARB CONTROL DIET. PT SUGAR DROPPED AT LUNCH TIME TO 48 AND WAS TREATED, THEN RECHECK AT 86. LUNCH TIME INSULIN WAS HELD. PT AMBULATES WITH STAND BY ASSIST TO RR, HOWEVER PT HAS A HX OF FALLS. FALL PRECAUTIONS IN PLACE, WILL CONTINUE TO MONITOR.
[2020-05-22 16:38] VITALS: BP 196/86
[2020-05-22 20:21] VITALS: BP 171/74
--- NOTE | 2020-05-23 02:04 | NUR ---
PT WAS RESTLESS AT THE START OF SHIFT. WANTED TO WALK TO THE BATHROOM SEVERAL TIMES. SHE IS STEADY WALKING, BUT GETS CONFUSED. DENIES PAIN. VOIDING OKAY.TOOK HS MEDS AND SNACK OKAY AT BEDTIME.APPEARS TO BE SLEEPING WELL AT THIS TIME.
[2020-05-23 03:02] VITALS: BP 173/81
[2020-05-23 06:12] LABS: HEMATOCRIT 36.4 % (37.0-47.0); HEMOGLOBIN 12.4 gm/dL (12.0-15.0); MCH 30.5 pg (26.0-34.0); MCHC 33.9 g/dL (28.0-37.0); MCV 89.9 fL (80.0-100.0); RBC 4.05 mil/uL (4.20-5.00); RDW 14.7 % (10.5-14.5); WBC 8.1 thou/uL (4.0-11.0)
[2020-05-23 06:21] LABS: ALBUMIN 3.3 g/dL (3.4-5.0); CALCIUM 8.9 mg/dL (8.5-10.1); CREATININE 1.1 mg/dL (0.6-1.0); PHOSPHORUS 3.6 mg/dL (2.5-4.9); POTASSIUM 3.1 mmol/L (3.5-5.1)
[2020-05-23 07:19] VITALS: BP 176/81
[2020-05-23 16:24] VITALS: BP 163/78
--- NOTE | 2020-05-23 18:11 | NUR ---
PT ASSESSED AT START OF SHIFT. NO C/O PAIN. UP IN THE CHIAR FOR MOST OF SHIFT. UP TO VOID PER BSC W/ MIN ASSIST. DTR HERE FOR VISIT THIS AFTERNOON. ACCUCK DONE FOR DINNER AND PT WAS 34. NO IV ACCESS IV WAS TWISTED AND DC'D THIS AM. PT WAS ALERT BUT RESTLESS. 2 APPLES JUICES GIVEN WELL GLUCOSE GEL. RECHECKED AFTER 20MIN AND CAME UP TO 113. EATING DINNER AT THIS TIME AND FEELING FINE. PAGED DR. TSANG TO REPORT INCIDENT BUT HAVE NOT HEARD BACK. WILL CONTINUE TO MONITOR PT.
[2020-05-23 19:09] VITALS: BP 168/66
[2020-05-24 03:50] VITALS: BP 179/76
--- NOTE | 2020-05-24 04:08 | NUR ---
CARE ASSUMED 1900. PT CONFUSED. ORIENTED X1. DENIES ANY PAIN. DENIES NAUSEA OR CHEST PAIN. VOIDING TO THE BEDSIDE COMMODE. WILL CONTINUE TO MONITOR AND FOLLOW POC.
[2020-05-24 05:59] LABS: ALBUMIN 3.3 g/dL (3.4-5.0); CALCIUM 9.4 mg/dL (8.5-10.1); CREATININE 1.1 mg/dL (0.6-1.0); PHOSPHORUS 3.9 mg/dL (2.5-4.9); POTASSIUM 3.6 mmol/L (3.5-5.1)
[2020-05-24 07:41] VITALS: BP 156/89
[2020-05-24] MEDS ORDERED: FELODIPINE 5 MG5 M1 PO (08:34)
[2020-05-24] MEDS ORDERED: HUMALOG100 UNIT/1 SUBQ (08:35)
--- NOTE | 2020-05-24 11:01 | NUR ---
cm spk w/pt's dtr as she had questions re pt [place] [facility] cm informed tricia [facility] [place] insurance auth/ tricia and pt expressed understanding. nicholas faxed up dated pt notes to johnny at [facility] [phone].
--- NOTE | 2020-05-24 14:47 | NUR ---
CLINICAL UPD[place] [facility] [place] FROM INSURANCE. COVID TEST ORDERD. AWAITING AUTH AND COVID TEST AT THIS TIME.
[2020-05-24 16:30] VITALS: BP 142/57
[2020-05-24 19:45] VITALS: BP 154/73
--- NOTE | 2020-05-25 02:28 | NUR ---
PT CARE ASSUMED WITH PATIENT IN CHAIR WATCHING TV AND DAUGHTER AT BEDSIDE.PT IS ALERT AND CONFUSE.PT IS UP WITH X1 ASSIST TO BEDSIDE COMMODE.PT KEPT JUMPING OUT OF BED .ASPHALT TAR AND GRAVEL ROOFER ALVARO INFORMED AND MELATONIN ORDERED WHICH HELPED PATIENT TO SLEEP.PT IS ACCUCHECK ACHS.FALL PRECAUTIONS IN PLACE.WILL CONTINUE TO MONITOR PER POC
[2020-05-25 08:33] VITALS: BP 148/59
--- NOTE | 2020-05-25 09:08 | NUR ---
cm lft message w/johnny in intake re insur auth.
--- NOTE | 2020-05-25 14:03 | NUR ---
MALLY GREWAL W/GALE, STATED SHE HAS RECEIVED INSUR AUTH, SCHEDULED TRANSPORTATON FOR [id number]. RM # [phone] AT [facility]. ASKED FOR COVID TEST RESULT AND DA124. RE DA124, PT DTR CHEMO STATED PT HAS BEEN MANAGING OWN CARE, OF LATE FORGETTING TO TAKE MED, BUT BELEIVES ITS D/T RECENT ILLNESS. CHEMO STATED PT HAS BEEN MAKING HER OWN DECISIONS. CM INFOMRED PT SHE WOULD BE GOING TO SNF TODAY, 1500, PT AGREE TO PLAN AND EXPRESSED UNDERSTANDING. CHEMO NOTIFIED OF TIME, AND RN NOTIFIED AND AGREEABLE TO PLAN. MALLY ASKED US TO MAKE CHART COPY. [facility] FAX [phone].
--- NOTE | 2020-05-25 15:19 | NUR ---
PT IS AOX1, VSS, NO S/S OF PAIN OR DISTRESS. FALL PRECAUTIONS IN PLACE. DC INSTRUCTIONS TOLD TO PT DAUGHTER. IV REMOVED, PT TRANSFERRED TO SNF BY TRANSPORT VAN.
[2020-05-25 16:50] VITALS: BP 154/73
== END 2020-05-25 15:01 | DRG 640 ==
LOC: ER 14:25 → 4S 18:53 → EROBS 18:53 → 4S 20:55
PROVIDERS: Emergency Medicine; Hospitalist; Nurse Practitioner Family; ADMIT Hospitalist; ATTEND Hospitalist
DX: E86.0 Dehydration (principal); N17.0 Acute kidney failure with tubular necrosis; R65.11 Systemic inflammatory response syndrome (SIRS) of non-infectious origin with acute organ dysfunction; T79.6XXA Traumatic ischemia of muscle, initial encounter; W19.XXXA Unspecified fall, initial encounter; I10 Essential (primary) hypertension; E11.9 Type 2 diabetes mellitus without complications; M81.0 Age-related osteoporosis without current pathological fracture; M19.90 Unspecified osteoarthritis, unspecified site; E78.5 Hyperlipidemia, unspecified; D64.9 Anemia, unspecified; F03.90 Unspecified dementia, unspecified severity, without behavioral disturbance, psychotic disturbance, mood disturbance, and anxiety; E03.9 Hypothyroidism, unspecified; R25.1 Tremor, unspecified; K21.9 Gastro-esophageal reflux disease without esophagitis; D69.6 Thrombocytopenia, unspecified; E87.6 Hypokalemia; Z20.828 Contact with and (suspected) exposure to other viral communicable diseases; Z85.3 Personal history of malignant neoplasm of breast; Y92.89 Other specified places as the place of occurrence of the external cause; Y93.89 Activity, other specified; Y99.8 Other external cause status; Z86.73 Personal history of transient ischemic attack (TIA), and cerebral infarction without residual deficits; Z90.12 Acquired absence of left breast and nipple; Z85.12 Personal history of malignant neoplasm of trachea; Z92.21 Personal history of antineoplastic chemotherapy; Z92.3 Personal history of irradiation; Z90.710 Acquired absence of both cervix and uterus; Z88.5 Allergy status to narcotic agent; Z88.1 Allergy status to other antibiotic agents; Z88.2 Allergy status to sulfonamides; Z88.8 Allergy status to other drugs, medicaments and biological substances; Z79.4 Long term (current) use of insulin; Z79.82 Long term (current) use of aspirin; Z79.899 Other long term (current) drug therapy
CPT/HCPCS: 10195

== ENCOUNTER 2020-07-16 00:42 | Emergency (ER) | payer OTHER ==
[~2020-07-16] VITALS: Ht 180.3 cm; Wt 76.2 kg
[~2020-07-16 00:42] MED LIST changes: +ASA81BEC PO; +CARVEDILOL6.25 M1 PO; +FELODIPINE 5 MG5 M1 PO; +LANTUS SOL100 UNIT/1 SUBQ; +LEVOTHYROXINE25 MCG PO; +MEMANTINE HCL10 MG PO; +NOVOLOG FL100 UNIT/M SUBQ; +PROTONIX40 M2 PO; +ROSUVASTATIN CA40 MG PO
[2020-07-16] MEDS ORDERED: ASCORBIC ACID500 MG (03:20)
[2020-07-16] MEDS ORDERED: LIPITOR80 MG (03:21)
[2020-07-16] MEDS ORDERED: COMBIVENT (03:22)
[2020-07-16] MEDS ORDERED: LANTUSSOLASTAR (03:23)
[2020-07-16] MEDS ORDERED: IBUPROFEN 400400 M2 (03:24)
[2020-07-16] MEDS ORDERED: GLUCOSE GEL38 GM (03:25)
[2020-07-16] MEDS ORDERED: ZINC SULFATE220 MG (03:25)
[2020-07-16 05:13] VITALS: BP 105/80
== END 2020-07-16 05:13 | disposition home or self-care (01) ==
LOC: ER 00:42
DX: S00.83XA Contusion of other part of head, initial encounter (principal); S00.12XA Contusion of left eyelid and periocular area, initial encounter; I10 Essential (primary) hypertension; E11.9 Type 2 diabetes mellitus without complications; Z86.2 Personal history of diseases of the blood and blood-forming organs and certain disorders involving the immune mechanism; Z79.4 Long term (current) use of insulin; Z79.82 Long term (current) use of aspirin; Z79.899 Other long term (current) drug therapy; Z88.1 Allergy status to other antibiotic agents; Z88.2 Allergy status to sulfonamides; Z88.8 Allergy status to other drugs, medicaments and biological substances; W18.39XA Other fall on same level, initial encounter; Y93.89 Activity, other specified; Y92.89 Other specified places as the place of occurrence of the external cause; Y99.8 Other external cause status

== ENCOUNTER 2021-08-23 16:18 | Inpatient (IN) | payer OTHER ==
[~2021-08-23] VITALS: Ht 157.5 cm; Wt 68.0 kg
[~2021-08-23 16:18] MED LIST changes: +ASCORBIC ACID500 MG PO; +COMBIVENT; +GLUCOSE GEL38 GM; +IBUPROFEN 400400 M2; +LANTUSSOLASTAR; +LIPITOR80 MG; +ZINC SULFATE220 MG
[2021-08-23 16:19] VITALS: BP 129/43
[2021-08-23 17:24] LABS: HEMATOCRIT 31.9 % (37.0-47.0); HEMOGLOBIN 10.6 gm/dL (12.0-15.0); MCH 31.9 pg (26.0-34.0); MCHC 33.2 g/dL (28.0-37.0); MCV 95.9 fL (80.0-100.0); RBC 3.33 mil/uL (4.20-5.00); RDW 14.7 % (10.5-14.5); WBC 14.2 thou/uL (4.0-11.0)
[2021-08-23 17:38] LABS: ANION GAP 11 mmol/L (7-16); BUN 52 mg/dL (7-18); CALCIUM 9.1 mg/dL (8.5-10.1); CHLORIDE 102 mmol/L (98-107); CO2 26 mmol/L (21-32); CREATININE 2.2 mg/dL (0.6-1.0); GLUCOSE 47 mg/dL (74-106); POTASSIUM 4.1 mmol/L (3.5-5.1); SODIUM 139 mmol/L (136-145)
[2021-08-23 17:49] LABS: ALBUMIN 3.1 g/dL (3.4-5.0); MAGNESIUM 1.3 mg/dL (1.8-2.4); PHOSPHORUS 4.4 mg/dL (2.6-4.7); SALICYLATE < 2.8 mg/dL (2.8-20.0); SGOT 28 U/L (15-37); SGPT 19 U/L (14-59); TOTAL BILIRUBIN 0.5 mg/dL (0.2-1.0); TOTAL PROTEIN 6.9 g/dL (6.4-8.2)
[2021-08-23 19:09] LABS: URINE BILIRUBIN NEGATIVE (Negative); URINE BLOOD NEGATIVE (Negative); URINE CLARITY CLEAR; URINE COLOR YELLOW; URINE GLUCOSE-RANDOM* NEGATIVE (Negative); URINE KETONES NEGATIVE (Negative); URINE NITRITE-REFLEX NEGATIVE (Negative); URINE PROTEIN (DIPSTICK) NEGATIVE (Negative); URINE UROBILINOGEN 0.2 E.U./dl (0.2-1.0)
[2021-08-23 19:11] LABS: URINE LEUKOCYTES-REFLEX 1+ (Negative)
[2021-08-23 19:18] LABS: AMP/METHAMP Negative (Negative); BARBITURATES Negative (Negative); BENZODIAZEPINES Negative (Negative); COCAINE Negative (Negative); METHADONE Negative (Negative); OPIATES Negative (Negative); PCP Negative (Negative); SQUAMOUS 4-10 Moderate /LPF (0-3); URINE WBC-REFLEX 6-15 Few /HPF (0-5)
[2021-08-23 19:19] LABS: BACTERIA-REFLEX >30 Many /HPF (None Seen); CASTS None Seen /LPF (None Seen); CRYSTALS None Seen /LPF (None Seen); URINE RBC None Seen /HPF (NONE SEEN)
[2021-08-24 02:06] VITALS: BP 124/79
[2021-08-24] MEDS ORDERED: LANTUS SUBQ (02:39)
[2021-08-24] MEDS ORDERED: LIPITOR 20 MG T20 M1 PO (04:44)
[2021-08-24] MEDS ORDERED: AVAPRO300 MG PO (04:44)
[2021-08-24] MEDS ORDERED: ASA81BEC PO (04:45)
[2021-08-24] MEDS ORDERED: DEPAKOTE 250MG250 M1 PO (04:45)
[2021-08-24] MEDS ORDERED: CLARITIN10 MG PO (04:45)
[2021-08-24] MEDS ORDERED: COLACE100 MG PO (04:45)
[2021-08-24] MEDS ORDERED: SEROQUEL 50 MG50 M1 PO (04:47)
[2021-08-24] MEDS ORDERED: EVISTA60 MG PO (04:47)
[2021-08-24] MEDS ORDERED: PEPCID20 MG PO (04:47)
[2021-08-24] MEDS ORDERED: SEROQUEL 25 MG25 M1 PO (04:47)
[2021-08-24] MEDS ORDERED: PREVACID30 MG PO (04:47)
[2021-08-24] MEDS ORDERED: TRAMADOL 50 MG50 MG PO (04:47)
[2021-08-24] MEDS ORDERED: VITCB500GO PO (04:48)
[2021-08-24] MEDS ORDERED: VITAMIN D3125 MCG PO (04:49)
[2021-08-24] MEDS ORDERED: FISH OIL 1,0001 EAC5 PO (04:49)
[2021-08-24] MEDS ORDERED: COUGH SYRU100 MG/5 M PO (04:50)
[2021-08-24] MEDS ORDERED: HYDROCHLOROTH12.5 M2 PO (04:51)
[2021-08-24] MEDS ORDERED: LEVO-T75 MCG PO (04:54)
[2021-08-24] MEDS ORDERED: MAGNESIUM250 M1 PO (04:54)
[2021-08-24 06:53] VITALS: BP 124/74
[2021-08-24 07:09] LABS: HEMATOCRIT 32.9 % (37.0-47.0); HEMOGLOBIN 10.9 gm/dL (12.0-15.0); MCH 32.3 pg (26.0-34.0); MCV 97.8 fL (80.0-100.0); RBC 3.36 mil/uL (4.20-5.00); RDW 14.6 % (10.5-14.5); WBC 13.5 thou/uL (4.0-11.0)
[2021-08-24 07:22] LABS: CALCIUM 8.8 mg/dL (8.5-10.1); CREATININE 1.3 mg/dL (0.6-1.0); MAGNESIUM 3.5 mg/dL (1.8-2.4)
[2021-08-24 07:23] LABS: POTASSIUM 4.1 mmol/L (3.5-5.1)
--- NOTE | 2021-08-24 08:23 | EKG ---
[address] [place] [address] ELECTROCARDIOGRAM REPORT Name: AMADA FRANCOISLEY Odalis Room #: 170-14 ADM IN M.R.#: [id number] Admission: 08/23/21 Attend Phys: Tirso Larson MD Discharge: Date of : 37 Report #: [id number] [facility] ED Test Date: 2021-08-23 Test Time: 17:34:41 Pat Name: HAKEEM FRANCOIS Department: Room: 170 Gender: F Railway Engineer: maddy : [id number] Requested By: Maverick Garza Order Number: [id number] MD: Oliver Reilly Measurements Intervals Valentine Rate: 95 P: 92 ME: 159 QRS: -11 QRSD: 86 T: 139 QT: 354 QTc: 445 Interpretive Statements Sinus rhythm Probable left atrial enlargement LVH with secondary repolarization abnormality Compared to ECG 05/19/2020 14:35:39 Early repolarization now present T-wave abnormality no longer present Prolonged QT interval no longer present Electronically Signed On 08-24-2021 8:22:53 CASTING OPERATOR HELPER by Oliver Reilly [email or web address] <ELECTRONICALLY SIGNED> By: Oliver Reilly MD, [facility] 08/24/21 0822 1734 1734 Oliver Reilly MD, [facility] /EPI
[2021-08-24 09:01] VITALS: BP 139/49
[2021-08-24 18:33] VITALS: BP 138/59
[2021-08-25 04:46] VITALS: BP 121/72
[2021-08-25 06:33] LABS: HEMATOCRIT 29.2 % (37.0-47.0); HEMOGLOBIN 9.8 gm/dL (12.0-15.0); MCH 32.8 pg (26.0-34.0); MCHC 33.6 g/dL (28.0-37.0); MCV 97.5 fL (80.0-100.0); RBC 2.99 mil/uL (4.20-5.00); RDW 14.5 % (10.5-14.5); WBC 8.2 thou/uL (4.0-11.0)
[2021-08-25 07:07] LABS: CALCIUM 8.5 mg/dL (8.5-10.1); CREATININE 1.4 mg/dL (0.6-1.0); MAGNESIUM 1.7 mg/dL (1.8-2.4); POTASSIUM 3.4 mmol/L (3.5-5.1)
[2021-08-25 07:10] VITALS: BP 124/50
--- NOTE | 2021-08-25 08:38 | NUR ---
PT ADMITTED TO [address] [place] [id number] FROM THE ER FOR A SYNCOPAL EPISODE AND FALL. ALSO PTS BG WAS LOW ON ADMIT. PT WAS GIVEN AN AMP OF D50 IN THE ER AND THE ER MENTIONED THAT NOW PTS BG WAS HIGH. PT ONLY ORIENTED TO SELF. VERY IMPULSIVE. PT GETTING UP OUT OF BED CONSTANTLY. ALL STAFF WORKING HARD TO KEEP PT IN BED AND SAFE. BROUGHT PT TO NURSES STATION IN CHAIR. PT STILL IMPULSIVE BUT STAFF WERE ABLE TO HAVE OUR EYES ON HER. PT VERY PLEASANTLY CONFUSED. PT ABLE TO TAKE ALL MEDICATION ORALLY ONE PILL AT A TIME. PT DRINKING LOTS OF WATER. PT STATED THAT SHE WAS VERY THIRSTY. IVF RUNNING. VOIDING LARGE AMOUNT OF URINE USING TOILET WITH ASST. PT UP ALL NIGHT AND DID NOT SLEEP UNTIL AROUND 6 AM. PROVIDED MUCH EMOTIONAL SUPPORT. HIGH FALL RISK. PT FROM NURSING FACILITY. WILL CONTINUE TO MONITOR FREQUENTLY.
--- NOTE | 2021-08-25 11:38 | NUR ---
Chart review, Dx uro-sepsis and syncope with fall. She is pleasantly forgetful with confusion. She is from [facility]. Has assist with adls. updates sent to [facility] [place].
[2021-08-25 20:32] VITALS: BP 107/54
--- NOTE | 2021-08-26 06:21 | NUR ---
ASSUMED CARE AT 1900, PT REMAINS LAYING IN BED COMFORTABLY, VOMITTED X1, MEDICATION ADMINISTERED, COMPLIANT TO TX, NO AVERSE REACTION NOTED, SLEPT THROUGH THE NIGHT WILL CONTINUE TO MONITOR.
[2021-08-26 07:19] VITALS: BP 135/45
[2021-08-26 07:47] LABS: HEMATOCRIT 30.3 % (37.0-47.0); HEMOGLOBIN 9.9 gm/dL (12.0-15.0); MCH 31.9 pg (26.0-34.0); MCHC 32.7 g/dL (28.0-37.0); MCV 97.6 fL (80.0-100.0); RBC 3.1 mil/uL (4.20-5.00); RDW 14.5 % (10.5-14.5); WBC 7.4 thou/uL (4.0-11.0)
[2021-08-26 08:04] LABS: CALCIUM 8.6 mg/dL (8.5-10.1); CREATININE 1.3 mg/dL (0.6-1.0); MAGNESIUM 1.9 mg/dL (1.8-2.4); POTASSIUM 3.8 mmol/L (3.5-5.1)
[2021-08-26] MEDS ORDERED: CEFPODOXIME PR200 M1 PO (10:24)
[2021-08-26 15:28] VITALS: BP 112/54
[2021-08-26 20:20] VITALS: BP 153/78
[2021-08-27 05:37] LABS: HEMATOCRIT 33.9 % (37.0-47.0); HEMOGLOBIN 11.1 gm/dL (12.0-15.0); MCH 32.2 pg (26.0-34.0); MCHC 32.8 g/dL (28.0-37.0); MCV 98.1 fL (80.0-100.0); RBC 3.46 mil/uL (4.20-5.00); RDW 14.4 % (10.5-14.5)
[2021-08-27 05:58] LABS: CREATININE 1.2 mg/dL (0.6-1.0); MAGNESIUM 1.3 mg/dL (1.8-2.4)
--- NOTE | 2021-08-27 10:13 | NUR ---
PT SEEMS UPSET THIS AM. ASKED PT IS SHE NEEDED TO VOID. PT STATED YES. ASSISTED PT UP TO BSC X2 PERSONS. PT VERY ANXIOUS. PT PLACED IN CHAIR FOR BREAKFAST. PT TOOK MEDS ORAL AND CHEWED MEDS, GAVE MEDS IN APPLSAUCE. PT LUNGS CLEAR. PT WAS D/C YESTERDAY. HAVE NOT HEARD OF ANY D/C PLANS TODAY.
[2021-08-27 16:00] VITALS: BP 159/100
--- NOTE | 2021-08-28 04:14 | NUR ---
PT IS A/O X1 AND IS UP WITH ASSISTANCE TO THE BSC. VSS. MEDICATIONS GIVEN PER MAR. FALL PRECAUTIONS IN PLACE, CALL LIGHT IS WITHIN REACH. PT IS PROGRESSING TOWARDS PLAN OF CARE DC GOALS.
[2021-08-28 07:03] LABS: HEMATOCRIT 32.3 % (37.0-47.0); HEMOGLOBIN 10.8 gm/dL (12.0-15.0); MCH 32.2 pg (26.0-34.0); MCHC 33.3 g/dL (28.0-37.0); MCV 96.8 fL (80.0-100.0); RBC 3.34 mil/uL (4.20-5.00); RDW 14.2 % (10.5-14.5)
[2021-08-28 07:28] LABS: MAGNESIUM 2.2 mg/dL (1.8-2.4); POTASSIUM 3.6 mmol/L (3.5-5.1)
[2021-08-28 07:40] VITALS: BP 153/63
--- NOTE | 2021-08-28 12:06 | NUR ---
A/O X 1 SELF. CONFUSED. ONE ASSIST WITH TRANSFERS AND ADLS. INCONT B/B. TOOK PILLS WHOLE. TREMORS UPPER BODY. NO PAIN NOTED AT THIS TIME.
[2021-08-28 16:25] VITALS: BP 151/61
[2021-08-28 19:47] VITALS: BP 148/60
--- NOTE | 2021-08-28 23:49 | NUR ---
ASSUMED CARE OF PT AT 1920. PT IS A&O TO SELF. DENIES PAIN. IS ON ROOM AIR. IS STABLE. IS UP WITH 1 ASSIST, GB, WALKER. FALL PRECAUTIONS & HOURLY ROUNDING CONTINUED THIS SHIFT. LABS & VITALS REVIWED. PT IS CURRENTLY SLEEPING. CALL LIGHT WITHIN REACH. WILL CONTINUE TO MONITOR.
[2021-08-29 04:52] VITALS: BP 135/54
[2021-08-29 08:00] VITALS: BP 122/51
--- NOTE | 2021-08-29 17:08 | NUR ---
SW reviewed chart and spoke with nursing and attending physician. Pt is progressing towards goals for discharge. Pt may be ready to discharge back to [facility] [place] [facility] [place] tomorrow. Therapy evals ordered today. The facility will need to get insurance auth if they want to use her skilled benefit. Faxed clinical updates to the facility. Notified Keren in admissions. [facility] is following to assist as needed with discharge planning.
[2021-08-29 17:15] VITALS: BP 140/62
[2021-08-29 23:58] VITALS: BP 134/59
[2021-08-30 07:42] VITALS: BP 104/37
--- NOTE | 2021-08-30 07:56 | NUR ---
RECEIVED CARE OF THIS PATIENT AT 1900. PATIENT ALERT AND ORIENTED [place] ONLY. UP WITH ASSIST. CAN BE IMPULSIVE AND TRIES TO GET OUT OF BED. ACCUCHECK WAS 228, RECEIVED NO SS COVERAGE.DENIES PAIN. SLEPT MOST OF NIGHT.
[2021-08-30 10:00] VITALS: BP 104/37
[2021-08-30 16:23] VITALS: BP 138/108
--- NOTE | 2021-08-30 17:31 | NUR ---
Patient working with therapy. Faxed updated clinical information to [facility]. Plan return [place] [facility] with skilled rehab. They have submitted for auth. updated dtr and patient.
[2021-08-30 17:47] VITALS: BP 172/79
--- NOTE | 2021-08-30 20:36 | NUR ---
PATIENT IS SAT UP IN THE CHAIR, DOES NOT EAT MUCH TODAY, CONFUSED, CALL LIGHT WITHIN REACH, CHAIR ALARM ON, WILL CONTINOUS MONITORING.
[2021-08-30 21:16] VITALS: BP 151/61
[2021-08-31 12:12] VITALS: BP 156/87
--- NOTE | 2021-08-31 13:07 | NUR ---
Assess due to length of stay. Admit with syncope, fall, UTI. Advanced age 86, with dementia but able to answer basic questions upon visit. Was eating lunch, struggling to open containers and chop meat. Once assisted started feeding self and demonstrating appetite. Stable wts around 150 lb. Will offer 1 glucerna shake daily, but otherwise presents low nutrition risk. Needs meal set up.
--- NOTE | 2021-08-31 16:42 | NUR ---
Rec auth for skilled. [facility] arranged van for 1330. Notified patient and dtr of transport and time. Chart copied. Orders faxed no further needs
== END 2021-08-31 14:09 | DRG 871 ==
LOC: ER 16:18 → 4S 19:31 → EROBS 19:31 → 4S 08-24 20:16
PROVIDERS: Emergency Medicine; Nurse Practitioner Family; ADMIT Internal Medicine; ATTEND Internal Medicine
DX: A41.51 Sepsis due to Escherichia coli [E. coli] (principal); N17.0 Acute kidney failure with tubular necrosis; N39.0 Urinary tract infection, site not specified; N18.9 Chronic kidney disease, unspecified; E83.42 Hypomagnesemia; Z20.822 Contact with and (suspected) exposure to COVID-19; F03.90 Unspecified dementia, unspecified severity, without behavioral disturbance, psychotic disturbance, mood disturbance, and anxiety; E78.5 Hyperlipidemia, unspecified; E03.9 Hypothyroidism, unspecified; K21.9 Gastro-esophageal reflux disease without esophagitis; G47.00 Insomnia, unspecified; M19.90 Unspecified osteoarthritis, unspecified site; E11.649 Type 2 diabetes mellitus with hypoglycemia without coma; E11.22 Type 2 diabetes mellitus with diabetic chronic kidney disease; I12.9 Hypertensive chronic kidney disease with stage 1 through stage 4 chronic kidney disease, or unspecified chronic kidney disease; G25.0 Essential tremor; R53.81 Other malaise; E86.0 Dehydration; Z90.12 Acquired absence of left breast and nipple; Z85.3 Personal history of malignant neoplasm of breast; Z86.73 Personal history of transient ischemic attack (TIA), and cerebral infarction without residual deficits; Z88.6 Allergy status to analgesic agent; Z88.1 Allergy status to other antibiotic agents; Z88.2 Allergy status to sulfonamides; Z88.8 Allergy status to other drugs, medicaments and biological substances; Z92.21 Personal history of antineoplastic chemotherapy; Z92.3 Personal history of irradiation; Z79.82 Long term (current) use of aspirin; Z79.899 Other long term (current) drug therapy
CPT/HCPCS: 10100